=== PATIENT | female | born 1995 | race Caucasian/White ===

== ENCOUNTER 2017-03-12 05:40 | Outpatient (CLI) | payer MEDICAID ==
[2017-03-16] MEDS ORDERED: PRENATAL VIT1 TAB PO (11:26)
[2017-03-16] MEDS ORDERED: MOTRIN-DPS800 MG PO (11:26)
[2017-03-16] MEDS ORDERED: COLACE-DPS100 MG PO (11:26)
[2017-03-16] MEDS ORDERED: NIPPLECREAM TP (11:27)
[2017-03-16] MEDS ORDERED: TYLENOL #3 DPS1 TAB PO (11:27)
[2017-03-16] MEDS ORDERED: DERMOPLAST SPRA56 GM TP (11:27)
[2017-03-16] MEDS ORDERED: LAN-O-SOOTHE7 GM TP (11:27)
[2017-03-16] MEDS ORDERED: TUCKS1 EACH TP (11:28)
== END 2017-03-12 07:48 | disposition home or self-care (01) ==
LOC: BC 05:40 → 2LDRP 05:40 → BC 07:48
DX: O99.89 Other specified diseases and conditions complicating pregnancy, childbirth and the puerperium (principal); R10.9 Unspecified abdominal pain; Z3A.41 41 weeks gestation of pregnancy

== ENCOUNTER 2017-03-12 18:45 | Outpatient (CLI) | payer MEDICAID ==
[2017-03-16] MEDS ORDERED: PRENATAL VIT1 TAB PO (11:26)
[2017-03-16] MEDS ORDERED: MOTRIN-DPS800 MG PO (11:26)
[2017-03-16] MEDS ORDERED: COLACE-DPS100 MG PO (11:26)
[2017-03-16] MEDS ORDERED: TYLENOL #3 DPS1 TAB PO (11:27)
[2017-03-16] MEDS ORDERED: DERMOPLAST SPRA56 GM TP (11:27)
[2017-03-16] MEDS ORDERED: LAN-O-SOOTHE7 GM TP (11:27)
[2017-03-16] MEDS ORDERED: NIPPLECREAM TP (11:27)
[2017-03-16] MEDS ORDERED: TUCKS1 EACH TP (11:28)
== END 2017-03-12 22:50 | disposition home or self-care (01) ==
LOC: BC 18:45 → 2LDRP 18:45 → BC 22:50
DX: O47.1 False labor at or after 37 completed weeks of gestation (principal); Z3A.41 41 weeks gestation of pregnancy

== ENCOUNTER 2017-03-13 01:20 | Inpatient (IN) | payer MEDICAID ==
[~2017-03-13] VITALS: Ht 152.4 cm; Wt 90.3 kg
--- NOTE | ~2017-03-13 | FD ---
ADMIT: 03/13/2017 RM/LOC: 228 [facility] MR#: [id number] [address] [id number] DANILO SHANKAR Y [address] [place] [address] Final Diagnosis SEX: F AGE: 21 : 1995 ADMISSION DATE: 03/13/2017 DISCHARGE DATE: 03/15/2017 FINAL DIAGNOSIS: 1, para 0 spontaneous onset of labor and spontaneous vaginal delivery on 03/13/2017 at 07:30. She delivered a female infant, weighing 3100 grams with scores of 8 at 1 minute, 9 at 5 minutes. There were no complications. The patient was delivered home on 03/15/2017 with plan to follow up with myself in 6 weeks. Sydni Vogt MD/ zack JOB #: [id number] CC: Sydni Vogt MD, Attending Physician Sydni Vogt MD, Family Physician
[2017-03-16] MEDS ORDERED: PRENATAL VIT1 TAB PO (11:26)
[2017-03-16] MEDS ORDERED: MOTRIN-DPS800 MG PO (11:26)
[2017-03-16] MEDS ORDERED: COLACE-DPS100 MG PO (11:26)
[2017-03-16] MEDS ORDERED: DERMOPLAST SPRA56 GM TP (11:27)
[2017-03-16] MEDS ORDERED: LAN-O-SOOTHE7 GM TP (11:27)
[2017-03-16] MEDS ORDERED: NIPPLECREAM TP (11:27)
[2017-03-16] MEDS ORDERED: TYLENOL #3 DPS1 TAB PO (11:27)
[2017-03-16] MEDS ORDERED: TUCKS1 EACH TP (11:28)
--- NOTE | 2017-03-17 13:52 | OR ---
ADMIT: 03/13/2017 RM/LOC: 228 [facility] MR#: [id number] [facility] [address] [place] [id number] HALIE SHANKAR Y [address] [place] [address] Operative/Delivery Room Report SEX: F AGE: 21 : 1995 SURGERY DATE: 03/13/2017 SURGEON: Sydni Vogt MD PREOPERATIVE DIAGNOSES: 1, para 0, 21-year-old, with EDC 03/14/2017, and benign course. Blood type O positive, antibody negative, rubella immune, hepatitis B negative, group B Streptococcus positive. POSTOPERATIVE DIAGNOSES: Viable female delivered at 0730 hours on 03/13/2017, weighing 3100 g or 6 pounds 14 ounces with scores 8 at 1 minute, 9 at 5 minutes. ESTIMATED BLOOD LOSS: 300 mL. FINDINGS: Intact placenta with three-vessel cord. DESCRIPTION OF PROCEDURE: Halie presented on the early childhood specialist of 03/12/2017, with irregular contractions and then again in the evening of 03/12/2017. Both those times, she was monitored for a couple of hours with no cervix change and was dismissed home. She came back in the early childhood specialist hours of 03/13/2017, still leah and did have some cervix changed from 3 to 4 cm. She was admitted and continued to progress into a more active phase of labor. At 0635 hours, she was completely dilated. She had an epidural and had no urge to push. With some coaching, she started to push very well. I was called shortly after 7 and on my arrival, she had small crown. She was prepped and draped and pushed very well and with the next 2 contractions delivered the baby. Baby was in the TASHA position. Body delivered easily and babe was vigorous. She was laid up on mom's abdomen. After delay of about 90 seconds, the cord was doubly clamped and then cut. Placenta delivered in less than 10 minutes and was intact and normal on inspection. Exam revealed no cervical tears. She had a left sidewall laceration in the lower vagina that was about 2 cm and because of some bleeding there, that was repaired. She did not require any additional anesthesia. When I left the room, both mom and babe were doing well and she does plan to breastfeed. We will use routine cares. Sydni Vogt MD/ zack JOB #: [id number] CC: Sydni Vogt, Attending Physician Sydni Vogt, Family Physician
== END 2017-03-15 11:15 | disposition home or self-care (01) | DRG 775 ==
LOC: 2LDRP 01:20 → BC 01:20 → 2LDRP 02:25
PROVIDERS: ADMIT Family Medicine
PROC: 0UQGXZZ Repair Vagina, External Approach (ICD-10-PCS; principal; 2017-03-13)
PROC: 10E0XZZ Delivery of Products of Conception, External Approach (ICD-10-PCS; principal; 2017-03-13)
DX: O99.824 Streptococcus B carrier state complicating childbirth (principal); O71.89 Other specified obstetric trauma; Z3A.39 39 weeks gestation of pregnancy; Z37.0 Single live birth